=== PATIENT | male | born 1945 | race Caucasian/White ===

== ENCOUNTER → 2017-06-21 | Outpatient (CLI) | payer OTHER, MEDICARE ==
[~2017-06-21] MED LIST: ACET-1256 PO; ASPEC81 PO; ASPI1CHW12 PO; CZR50 PO; DICL1GEL28 TOP; GLC/500 PO; GLIP10TA9 PO; HYDR25TA5 PO; IBUP-1050 PO; KETO10TA PO; LOSA1TAB PO; OXYC-57 PO; PRVC/40 PO; SAXAGLIPTIN; SAXAGLIPTIN PO; SILD100T PO
[2017-06-21 14:37] LABS: BASO % 0.3 %; BASO ABS # 0.02 K/uL (0-0.2); EOS % 2.5 %; EOS ABS # 0.17 K/uL (0-0.5); HEMATOCRIT 41.8 % (42-52); HEMOGLOBIN 14.4 g/dL (14.0-18.0); LYMPH % 22.1 %; MEAN CELL VOLUME 90.3 fL (80-100); MEAN CORPUSCULAR HEMOGLOBIN 31.1 pg (25-34); MEAN CORPUSCULAR HGB CONC 34.4 g/dl (32-36); MEAN PLATELET VOLUME 11.4 fL (7.4-10.4); MONO % 8.7 %; MONO ABS # 0.59 K/uL (0.11-0.59); NEUT % 66.4 %; NEUT ABS # 4.52 K/uL (1.4-6.5); PLATELET COUNT 158 K/uL (130-400); RED CELL DISTRIBUTION WIDTH SD 42.9 fL (36.4-46.3)
[2017-06-21 15:16] LABS: BLOOD UREA NITROGEN 28 mg/dl (7-18); CARBON DIOXIDE 26 mmol/L (21-32); CREATININE 1.11 mg/dl (0.60-1.40); GLUCOSE 110 mg/dl (70-99); POTASSIUM 3.4 mmol/L (3.5-5.1); SODIUM 139 mmol/L (136-145)
== END | disposition home or self-care (01) ==
LOC: C.CPL 12:35
PROVIDERS: ATTEND Orthopaedic Surgery
DX: Z01.818 Encounter for other preprocedural examination (principal); S52.022A Displaced fracture of olecranon process without intraarticular extension of left ulna, initial encounter for closed fracture; X58.XXXA Exposure to other specified factors, initial encounter

== ENCOUNTER 2017-06-24 12:31 | Day surgery (SDC) | payer OTHER, MEDICARE ==
--- NOTE | 2017-06-23 10:06 | HISTORY & PHYSICAL EXAMINATION ---
DATE OF ADMISSION: 06/24/2017 CHIEF COMPLAINT: Left olecranon fracture. HISTORY OF PRESENT ILLNESS: Laureano is a pleasant 72-year-old male who fell off a step ladder about a week ago directly on to his left elbow. He had immediate elbow pain. He went to [facility] [place] [facility] where radiographs demonstrated a transverse left olecranon fracture. He was placed in a posterior splint and presented to my office. After discussions in my office, he has elected to proceed with an ORIF of the left olecranon. PAST MEDICAL HISTORY: Significant for heart disease, a single stent placement 10 years ago, diabetes, hyperlipidemia, and hypertension. PAST SURGICAL HISTORY: Significant for left total knee arthroplasty, cervical fusion by Dr. Lamb 4 years ago, cardiac stent placement in [place] 10 years ago. ALLERGIES: None. MEDICATIONS: Include glipizide 10 mg twice a day, hydrochlorothiazide 25 mg daily, losartan 50 mg daily, metformin 500 mg twice a day, pravastatin 20 mg daily, aspirin 81 mg daily, ibuprofen as needed for pain, and Claritin 10 mg as needed. FAMILY HISTORY: Denies. SOCIAL HISTORY: The patient is , has 1-2 drinks a day. He lives in a house with his and his is able to take care of him. REVIEW OF SYSTEMS: He complains of left elbow pain. PHYSICAL EXAMINATION: GENERAL: He is awake, alert and oriented x3. He is in no apparent distress. He is very pleasant. HEENT: Pupils equal, round, reactive to light. Extraocular motion is intact. Oral mucosa is pink and moist. HEART: Regular rate per radial pulse. LUNGS: Loan symmetrically bilaterally with no audible breath sounds. ABDOMEN: Soft, nontender, nondistended. MUSCULOSKELETAL: On physical examination of his arms, he is wearing a coaptation splint. He has active motion of all his fingers. He does not have too much swelling. Sensation is intact. He has full range of motion of his shoulder. X-rays of the left elbow show a displaced transverse left olecranon fracture. 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 IMPRESSION: A transverse left olecranon fracture. PLAN: We will proceed with open reduction internal fixation of left olecranon. Postoperatively, he will be given some oral pain medications and likely discharged to home.
[2017-06-23 10:18] VITALS: BMI 39.0
[~2017-06-24] VITALS: Ht 177.8 cm; Wt 122.7 kg
[~2017-06-24 12:31] MED LIST changes: +ACETAMINOPHEN 500 MG TAB PO SCH; -ASPEC81 PO; +CEFAZOLIN 3000MG IV PUSH 22.5 ML IV SCH; -DICL1GEL28 TOP; +FAMOTIDINE 20 MG TAB PO SCH; +GABAPENTIN 300 MG CAP PO SCH; -KETO10TA PO; +LACTATED RINGER'S 1000ML 1,000 ML IV SCH; +LACTATED RINGER'S 1000ML IV SCH; -LOSA1TAB PO; -OXYC-57 PO; -SAXAGLIPTIN
[2017-06-24 13:00] VITALS: BP 150/88; PULSE 78; TEMP 36.6; O2SAT 97; Ht 177.8 cm; Wt 122.7 kg
[2017-06-24] MEDS ORDERED: OXYC-57 PO ×2 (13:17→18:32)
--- NOTE | 2017-06-24 14:15 | History & Physical Bridge Note ---
H&P Re-Evaluation Bridge Note: I have examined the patient, reviewed the History & Physical and in the interval since the performance of the History & Physical I have noted the following changes of clinical significance: No changes noted
[2017-06-24] MEDS ORDERED: PROPOFOL IV EMULSION 10 MG/ML 20 ML VIAL IV ONE ×2 (16:31→17:12)
[2017-06-24] MEDS ORDERED: MIDAZOLAM HCL 1 MG/ML 2ML VIAL ONE (16:31)
[2017-06-24] MEDS ORDERED: DEXAMETHASONE SOD INJ 4 MG/ML VIAL ONE (16:31)
[2017-06-24] MEDS ORDERED: LIDOCAINE HCL 2% 2 ML VIAL (20MG/ML) ONE (16:31)
[2017-06-24] MEDS ORDERED: FENTANYL CITRATE INJ 50 MCG/1 ML 2 ML VIAL ONE ×2 (16:31→17:30)
[2017-06-24] MEDS ORDERED: ONDANSETRON INJ 2 MG/ML 2 ML VIAL ONE (16:31)
[2017-06-24] MEDS ORDERED: BUPIVACAINE 0.25% 30 ML VIAL ONE (16:32)
[2017-06-24] MEDS ORDERED: EpINEphrine INJ 1MG/ML AMP 1 MG/ML AMP ONE (16:32)
[2017-06-24] MEDS ORDERED: BACITRACIN 50000 UNIT VIAL ONE (16:32)
[2017-06-24] MEDS ORDERED: ROCURONIUM BROMIDE 10 MG/ML 5 ML VIAL IV ONE (17:23)
[2017-06-24] MEDS ORDERED: NEOSTIGMINE METHYLSULFATE 5 MG/5 ML SYR ONE (17:23)
[2017-06-24] MEDS ORDERED: GLYCOPYRROLATE INJ 0.2 MG/ML VIAL ONE (17:23)
[2017-06-24] MEDS ORDERED: ONDANSETRON INJ 2 MG/ML 2 ML VIAL IV PRN ×2 (17:30→18:45)
[2017-06-24] MEDS ORDERED: ATROPINE SULFATE 0.1 MG/ML 5ML SYR IV PRN (17:30)
[2017-06-24] MEDS ORDERED: EpHEDrine SULFATE INJ 50 MG/ML AMP IV PRN (17:30)
[2017-06-24] MEDS ORDERED: HYDROmorphone INJ 0.5 MG/0.5 ML SYR IV PRN (17:30)
[2017-06-24] MEDS ORDERED: MEPERIDINE HCL 25 MG/ML CARP IV PRN (17:30)
--- NOTE | 2017-06-24 18:21 | DIAGNOSTIC IMAGING REPORT ---
L ELBOW MIN 3 VIEWS ROUTINE CLINICAL HISTORY: LT ORIF OLECRANON COMPARISON STUDY: None FLUOROSCOPY TIME: 1 minute 9 seconds. FINDINGS: Anatomic alignment post open reduction internal fixation IMPRESSION: Anatomic alignment post open reduction internal fixation The above report was generated using voice recognition software. It may contain grammatical, syntax or spelling errors. Electronically signed by: Aaron Horn M.D. 06/24/2017 6:20 PM Dictated Date/Time: 06/24/2017 6:19 PM
[2017-06-24] MEDS ORDERED: KETO10TA PO (18:32)
--- NOTE | 2017-06-24 18:32 | [facility] Post Operative Brief Note ---
Immediate Operative Summary Operative Date Jun 24, 2017. Pre-Operative Diagnosis Transverse left olecranon fracture Post-Operative Diagnosis Transverse left olecranon fracture Procedure(s) Performed Open Reduction Internal Fixation Olecranon Left Elbow Fracture Surgeon Dr. Valdes Charge Account Authorizer Surgeon(s) Dixon Wright Estimated Blood Loss 10ml Findings Consistent with Post-Op Diagnosis Specimens No specimen Anesthesia Type General Complication(s) none Disposition Disposition: Recovery Room / PACU
[2017-06-24] MEDS ORDERED: SODIUM CHLORIDE 0.9% 1000ML 1,000 ML IV SCH (18:34)
--- NOTE | 2017-06-24 18:34 | Discharge Instructions ---
Discharge Instructions Date of Service Jun 24, 2017. Admission Reason for Admission: Olecranon Fracture Left Elbow Discharge Discharge Diagnosis / Problem: SAME ABOVE Discharge Goals Goal(s): Decrease discomfort, Improve function Activity Recommendations Activity Limitations: as noted below Lifting Limitations: until after follow-up appointment . Instructions / Follow-Up Instructions / Follow-Up MEDICATIONS: * Resume previous medications unless instructed otherwise by your surgeon. * Always take pain medication on a full stomach or with food to avoid upset stomach. * Do not drink alcohol or drive while taking narcotics. * Ibuprofen or Tylenol may be taken if narcotic not needed. SPECIAL CARE INSTRUCTIONS: __ None _X_ Keep extremity elevated and iced x 48 hours; apply ice 20-30 minutes 8-10 times/day. May remove at night. _X_ Sling _X_24 hrs/day __ Remove at night __ Shoulder Immobilizer __ 24 hrs/day __ Remove at night _X_ Dressing _X_ Maintain until seen in office, may shower with plastic over site __ Remove dressings in 24-48 hours and then may shower __ Cover incisions with band-aids after showering __ Do not remove steri-strips Call physician if chills or temperature rises above 102 degrees or pain unrelieved by prescribed pain medications at . . Current Hospital Diet Patient's current hospital diet: Discharge Diet Recommended Diet: Regular Diet Procedures Procedures Performed: Open Reduction Internal Fixation Olecranon Left Elbow Fracture Pending Studies Studies pending at discharge: no Work Instructions Return To Work: after follow-up Medical Emergencies . Who to Call and When: Medical Emergencies: If at any time you feel your situation is an emergency, please call 911 immediately. . Non-Emergent Contact Non-Emergency issues call your: Primary Care Provider Call Non-Emergent contact if: you have a fever, temperature is above 101.5 . "Provider Documentation" section prepared by Dixon Kuhn. .
[2017-06-24] MEDS ORDERED: OXYCODONE/ACETAMINOPHEN 5-325 TAB PO PRN ×2 (18:45)
[2017-06-24] MEDS: FENTANYL CITRATE INJ 50 MCG/1 ML 2 ML VIAL IV PRN ×2 (18:50→18:55)
[2017-06-24] MEDS: LABETALOL HCL IV 5 MG/ML 20ML IV PRN ×2 (18:54→19:00)
[2017-06-24 19:20] VITALS: BP 150/66; PULSE 53; TEMP 36.2; O2SAT 96
[2017-06-24 19:49] VITALS: BP 153/71; PULSE 68; O2SAT 94
--- NOTE | 2017-06-24 20:47 | Anesthesiology Progress Note ---
Anesthesia Post Op Note Date & Time Jun 24, 2017 at 20:47 Vital Signs Pain Intensity: 4 Vital Signs Past 12 Hours Date Time Temp Pulse Resp B/P (MAP) Pulse Ox O2 Delivery O2 Flow Rate FiO2 06/24/17 19:49 68 18 153/71 94 Room Air 06/24/17 19:20 36.2 53 18 150/66 96 Room Air 06/24/17 19:15 36.5 54 16 158/78 94 Room Air 06/24/17 19:05 36.5 55 16 167/75 98 Room Air 06/24/17 18:55 62 16 174/76 99 Oxymask 10 06/24/17 18:45 63 16 181/80 97 Oxymask 10 06/24/17 18:35 36.5 71 16 200/90 97 Oxymask 10 06/24/17 13:00 36.6 78 18 150/88 (108) 97 Room Air Notes Mental Status: alert / awake / arousable, participated in evaluation Pt Amnestic to Procedure: Yes Nausea / Vomiting: adequately controlled Pain: adequately controlled Airway Patency, RR, SpO2: stable & adequate BP & HR: stable & adequate Hydration State: stable & adequate Anesthetic Complications: no major complications apparent
--- NOTE | 2017-06-24 23:50 | OPERATIVE REPORT ---
DATE OF OPERATION: 06/24/2017 PREOPERATIVE DIAGNOSIS: Transverse left olecranon fracture. POSTOPERATIVE DIAGNOSIS: Transverse left olecranon fracture. PROCEDURE: Open reduction internal fixation of left olecranon fracture. SURGEON: Erich Valdes DO. STOVE POLISHER: Giovanni Kuhn PA-C, whose assistance was necessary for retraction and closure. ANESTHESIA: General. COMPLICATIONS: None. CONDITION: Stable to PA-C. IMPLANTS USED: I used a Synthes precontoured olecranon plate. INDICATIONS: Ricardo is a pleasant 72-year-old male who fell and fractured his left olecranon several days ago. He was placed in a splint and came to my office. Radiographs demonstrated a transverse olecranon fracture. He elected to undergo open reduction internal fixation. OPERATION AND FINDINGS: On 06/24/2017, he arrived at [facility] for the above procedure. He was seen in the preoperative holding and the operative extremity was identified and signed. He was given a preoperative antibiotic and taken back to the operating room, laid on the table in supine position and put under general anesthesia. He was then put in the lateral decubitus position. The left elbow was then prepped and draped in sterile fashion. Time-out was done and the patient and operative extremity was properly identified. A longitudinal incision was made directly over the olecranon. Dissection was taken down directly to the fracture. The joint was irrigated thoroughly. The edges of the fracture were freshened up with a sharp knife. A tenaculum clamp was used to reduce the fracture. I was able to get anatomic reduction. A Synthes proximal olecranon plate was then applied. A single compression screw was placed in a combination hole more distally. A compression screw was then placed perpendicular to the fracture site. This compressed the plate to the posterior olecranon and the original cortical screw was tightened. Fluoroscopy was used and I was happy with the alignment and the reduction. Multiple locking screws were placed both proximally and distally. All screw lengths were checked under fluoroscopy. After I was happy with the fixation, the elbow was brought through a full range of motion and felt to be stable. Final fluoroscopic images showed anatomic reduction and acceptable alignment of the hardware. None of the screws appeared to be in the joint. The wound was then irrigated with pulse lavage. The split in the triceps was repaired with Vicryl suture. Skin was closed with 3-0 Vicryl and birgit. He was then placed in a soft dressing and a coaptation splint. He was then extubated, transferred to a litter and taken to the postanesthesia care unit in stable condition. He tolerated the procedure well. I attest to the content of the Intraoperative Record and any orders documented therein. Any exception s are noted below.
== END 2017-06-24 20:11 | disposition home or self-care (01) ==
LOC: C.ACU 12:31
PROVIDERS: ATTEND Orthopaedic Surgery
DX: S52.022A Displaced fracture of olecranon process without intraarticular extension of left ulna, initial encounter for closed fracture (principal); W11.XXXA Fall on and from ladder, initial encounter; I51.9 Heart disease, unspecified; G47.33 Obstructive sleep apnea (adult) (pediatric); E11.40 Type 2 diabetes mellitus with diabetic neuropathy, unspecified; I25.10 Atherosclerotic heart disease of native coronary artery without angina pectoris; E66.9 Obesity, unspecified; E78.5 Hyperlipidemia, unspecified; I11.9 Hypertensive heart disease without heart failure; Z95.5 Presence of coronary angioplasty implant and graft; Z96.652 Presence of left artificial knee joint; Z98.1 Arthrodesis status; Z79.84 Long term (current) use of oral hypoglycemic drugs; Z79.899 Other long term (current) drug therapy; Z79.82 Long term (current) use of aspirin; Z87.891 Personal history of nicotine dependence

== ENCOUNTER 2024-02-07 08:51 | Inpatient (IN) ==
--- NOTE | 2024-01-09 15:54 | PAT Medication Instructions ---
Medication Instructions Date of Service January 09, 2024 Home Medications aspirin 81 mg tablet 81 mg PO QAM cholecalciferol (vitamin D3) 125 mcg (5,000 unit) tablet (Vitamin D3) 125 mcg PO BID diphenhydramine 25 mg-acetaminophen 500 mg tablet (Tylenol PM Extra Strength) 2 tab PO HS duloxetine 20 mg capsule,delayed release 20 mg PO QAM fluticasone propionate 50 mcg/actuation nasal spray,suspension 2 spray intranasal DAILY losartan 50 mg-hydrochlorothiazide 12.5 mg tablet 1 tab PO QAM metformin 1,000 mg tablet 1,000 mg PO BID sitagliptin 100 mg tablet 100 mg PO QAM vitamin B12 1,000 mcg-folic acid 400 mcg sublingual tablet 1 tab sublingual DAILY Continue as directed fluticasone propionate 50 mcg/actuation nasal spray,suspension 2 spray intranasal DAILY ASK your prescriber and surgeon aspirin 81 mg tablet 81 mg PO QAM DO NOT take the morning of surgery cholecalciferol (vitamin D3) 125 mcg (5,000 unit) tablet (Vitamin D3) 125 mcg PO BID losartan 50 mg-hydrochlorothiazide 12.5 mg tablet 1 tab PO QAM metformin 1,000 mg tablet 1,000 mg PO BID sitagliptin 100 mg tablet 100 mg PO QAM vitamin B12 1,000 mcg-folic acid 400 mcg sublingual tablet 1 tab sublingual DAILY Take morning of surgery With a small sip of water, OTHERWISE NOTHING TO EAT OR DRINK AFTER MIDNIGHT: duloxetine 20 mg capsule,delayed release 20 mg PO QAM Take evening before surgery cholecalciferol (vitamin D3) 125 mcg (5,000 unit) tablet (Vitamin D3) 125 mcg PO BID diphenhydramine 25 mg-acetaminophen 500 mg tablet (Tylenol PM Extra Strength) 2 tab PO HS metformin 1,000 mg tablet 1,000 mg PO BID Other Notes If you have any questions please call us at [phone] or [phone] or [phone] or [phone]
--- NOTE | 2024-01-20 13:10 | Anesthesiology Consultation ---
Date of Service January 20, 2024 Assessment & Plan (1) Encounter for pre-operative examination: - Infectious disease screening: Per assessment on 01/20/24- No known recent infectious disease contacts or current infectious disease symptoms. - Preop EKG: Preop EKG done 01/20/24 notes inferior lead TWI. Note written to PCP- Awaiting EKG response + surgeon-ordered PCP preop evaluation (Renetta MENDES, appt done 01/18). Chart Review Chart Review: Patient seen in Pre Admission Testing Teaching & Discussion Pre-Anesthesia Teaching/Discussion Notes: Instructed NPO after midnight before surgery,except medications with 15 cc of water. Medication instructions provided according to the PAT guidelines. History Surgery Operation Date: 02/07/24 11:05 Proposed Procedures p L2-S1 Decompression and Fusion Spinal Cord Monitoring - Mike Galloway, Height/Weight Height: 5 ft 10 in Weight: 114.2 kg Allergies Allergy/AdvReac Type Severity Reaction Status Date / Time atenolol Allergy Unknown Severe Verified 01/20/24 09:25 joint pain, muscle cramps atorvastatin Allergy Unknown Severe Verified 01/20/24 09:25 joint pain, muscle cramps ezetimibe Allergy Unknown Severe Verified 01/20/24 09:25 joint pain, muscle cramps felodipine Allergy Unknown Severe Verified 01/20/24 09:25 joint pain, muscle cramps lisinopril Allergy Unknown Severe Verified 01/20/24 09:25 joint pain, muscle cramps niacin Allergy Unknown Severe Verified 01/20/24 09:25 joint pain, muscle cramps simvastatin Allergy Unknown Severe Verified 01/20/24 09:25 joint pain, muscle cramps zolpidem AdvReac Unknown Hallucinati Verified 01/20/24 09:25 ons Medications Home Medications Medication Instructions Recorded Confirmed Last Taken aspirin 81 mg tablet 81 mg PO QAM 01/06/24 01/06/24 Unknown cholecalciferol (vitamin D3) 125 125 mcg PO BID 01/06/24 01/06/24 Unknown mcg (5,000 unit) tablet (Vitamin D3) diphenhydramine 25 2 tab PO HS 01/06/24 01/06/24 Unknown mg-acetaminophen 500 mg tablet (Tylenol PM Extra Strength) duloxetine 20 mg capsule,delayed 20 mg PO QAM 01/06/24 01/06/24 Unknown release fluticasone propionate 50 2 spray intranasal DAILY allergies 01/06/24 01/06/24 Unknown mcg/actuation nasal spray,suspension losartan 50 mg-hydrochlorothiazide 1 tab PO QAM 01/06/24 01/06/24 Unknown 12.5 mg tablet metformin 1,000 mg tablet 1,000 mg PO BID 01/06/24 01/06/24 Unknown sitagliptin 100 mg tablet 100 mg PO QAM 01/06/24 01/06/24 Unknown vitamin B12 1,000 mcg-folic acid 1 tab sublingual DAILY 01/06/24 01/06/24 Unknown 400 mcg sublingual tablet Past Medical History Medical History (Updated 01/20/24 @ 15:02 by Amy Cortes) CAD (coronary artery disease) Stent x1 (2005) Monitored by PCP Cervical spondylosis with myelopathy Diabetes mellitus History of basal cell carcinoma HLD (hyperlipidemia) Hx of colonic polyp Hx of renal calculi Passed on own Hypertension Seasonal allergies Sleep apnea CPAP (compliant) Exercise / Class Metabolic Activity III < 4 Walking/Shop/Light housework Past Surgical History Surgical History (Updated 01/20/24 @ 15:02 by Amy Cortes) History of basal cell carcinoma (BCC) excision Multiple History of esophagogastroduodenoscopy (EGD) History of left knee replacement History of open reduction and internal fixation (ORIF) procedure Feft elbow (fx from fall) Hx of cardiac catheterization 2005 > stent x1 Hx of colonoscopy with polypectomy Hx of fusion of cervical spine 15+ years ago Hx of heart artery stent (2003) Stent x1 Hx of hemorrhoidectomy (1973) Hx of varicose vein stripping (06/2023) 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 Physical Exam Vital Signs BP 125/69 P 73 TEMP 98.2 SP02 95%RA RESP 16 Physical Full cervical extension range of motion. Full TMJ range of motion. TMD 3 finger breaths Mallampati Score II Dentition: upper partial Lungs: clear throughout to auscultation Cardiac: regular rate and rhythm, no murmurs noted Spine: normal Carotid arteries: negative bruit Extremities: no LE edema Lab Results Anesthesia Preop Results Results Anesthesia Widget: WBC 6.85 K/ul (4.8-10.8) 01/20/24 Hgb 13.8 g/dl (14.0-18.0) L 01/20/24 Hct 41.3 % (42.0-52.0) L 01/20/24 Plt 151 K/uL (130-400) 01/20/24 Na 141 mmol/L (136-145) 01/20/24 K 4.0 mmol/L (3.5-5.1) 01/20/24 Cl 105 mmol/L (98-107) 01/20/24 CO2 27 mmol/L (21-32) 01/20/24 BUN 17 mg/dl (6-23) 01/20/24 Creat 1.07 mg/dl (0.6-1.4) 01/20/24 Glucose Level 133 mg/dl (70-99(Fasting)) H 01/20/24 PT 10.8 Seconds (9.0-12.0) 01/20/24 PTT 25 Seconds (21-31) 01/20/24 INR 1.0 (0.9-1.1) 01/20/24 Urine Color Yellow 01/20/24 Urine Appearance Clear (Clear) 01/20/24 Urine pH 5.5 (4.5-7.5) 01/20/24 Urine Specific [place] 1.022 (1.000-1.030) 01/20/24 Urine Protein Negative (Negative) 01/20/24 Urine Glucose (UA) Negative (Negative) 01/20/24 Urine Ketones Trace (Negative) H 01/20/24 Urine Blood Negative (Negative) 01/20/24 Urine Nitrite Negative (Negative) 01/20/24 Urine Bilirubin Negative (Negative) 01/20/24 Urine Urobilinogen Negative (Negative) 01/20/24 Urine Leukocyte Esterase Negative (Negative) 01/20/24 Blood Type B Positive 01/20/24 Antibody Screen NEGATIVE 01/20/24 Testing Electrocardiogram Date: 01/20/24 NSR at 71bpm. NS TWA. Inferior lead TWI (more evident than comparison EKG 2018 per assembler dry cell and battery comparison). Chest X-Ray Date: 01/20/24 FINDINGS: Anterior cervical spine fusion is incidentally noted. Lung volumes are normal. Lungs are clear. There is no pneumothorax or pleural effusion. Mild cardiomegaly is unchanged. Mediastinal contours are normal. There is no evidence for pulmonary edema. IMPRESSION: No acute cardiopulmonary findings.
[~2024-02-07 08:51] MED LIST changes: -ACET-1256 PO; -ACETAMINOPHEN 500 MG TAB PO SCH; -ASPI1CHW12 PO; -CEFAZOLIN 3000MG IV PUSH 22.5 ML IV SCH; -CZR50 PO; -FAMOTIDINE 20 MG TAB PO SCH; -GABAPENTIN 300 MG CAP PO SCH; -GLC/500 PO; -GLIP10TA9 PO; -HYDR25TA5 PO; -IBUP-1050 PO; -LACTATED RINGER'S 1000ML 1,000 ML IV SCH; -LACTATED RINGER'S 1000ML IV SCH; +LIDOCAINE 2% 20 MG/ML 5 ML SYR IV ONE; +LR 15ML/HR IV SCH; +LR 60ML/HR IV SCH; +PROPOFOL IV EMULSION 10 MG/ML 20 ML VIAL IV ONE; -PRVC/40 PO; +ROCURONIUM BROMIDE 10 MG/ML 5 ML VIAL IV ONE; -SAXAGLIPTIN PO; -SILD100T PO; +fentaNYL citrate PF 100 MCG/2 ML VIAL ONE
[2024-02-07] MEDS ORDERED: ATROPINE SULFATE 0.1 MG/ML 10ML SYR IV PRN (09:33)
[2024-02-07] MEDS ORDERED: DROPERIDOL 5 MG/2 ML VIAL IV PRN (09:33)
[2024-02-07] MEDS ORDERED: ePHEDrine sulfate 50 MG/ML AMP IV PRN (09:33)
[2024-02-07] MEDS: SODIUM CHLORIDE 0.9% 1,000 ML IV SCH ×2 (09:38→15:45)
[2024-02-07] MEDS: ACETAMINOPHEN 500 MG TAB PO SCH (09:38)
[2024-02-07] MEDS: CeleBREX 200 MG CAP PO SCH (09:38)
[2024-02-07] MEDS: GABAPENTIN 300 MG CAP PO SCH (09:38)
--- NOTE | 2024-02-07 09:54 | History & Physical Bridge Note ---
Date of Service February 07, 2024 History & Physical Bridge Note I have examined the patient, reviewed the History & Physical and in the interval since the performance of the History & Physical I have noted the following changes of clinical significance: no changes noted
--- NOTE | 2024-02-07 09:55 | History & Physical Report ---
Date of Service February 07, 2024 Assessment & Plan (1) Neurogenic claudication due to lumbar spinal stenosis: Plan: L2-S1 decompression and fusion History of Present Illness Chief Complaint: Back and bilateral pain Primary Care Provider: Lemuel Gordillo This is a 78-year-old male who presents with chronic persistent back and bilateral knee pain after failing course of nonoperative care is here for surgical invention. Allergies Allergy/AdvReac Type Severity Reaction Status Date / Time atenolol Allergy Unknown Severe Verified 02/07/24 09:25 joint pain, muscle cramps atorvastatin Allergy Unknown Severe Verified 02/07/24 09:25 joint pain, muscle cramps ezetimibe Allergy Unknown Severe Verified 02/07/24 09:25 joint pain, muscle cramps felodipine Allergy Unknown Severe Verified 02/07/24 09:25 joint pain, muscle cramps lisinopril Allergy Unknown Severe Verified 02/07/24 09:25 joint pain, muscle cramps niacin Allergy Unknown Severe Verified 02/07/24 09:25 joint pain, muscle cramps simvastatin Allergy Unknown Severe Verified 02/07/24 09:25 joint pain, muscle cramps zolpidem AdvReac Unknown Hallucinati Verified 02/07/24 09:25 ons Home Medications Medication Instructions Recorded Confirmed Type aspirin 81 mg tablet 81 mg PO QAM 01/06/24 02/07/24 History cholecalciferol (vitamin D3) 125 125 mcg PO BID 01/06/24 02/07/24 History mcg (5,000 unit) tablet (Vitamin D3) diphenhydramine 25 2 tab PO HS 01/06/24 02/07/24 History mg-acetaminophen 500 mg tablet (Tylenol PM Extra Strength) duloxetine 20 mg capsule,delayed 20 mg PO QAM 01/06/24 02/07/24 History release fluticasone propionate 50 2 spray intranasal DAILY allergies 01/06/24 02/07/24 History mcg/actuation nasal spray,suspension losartan 50 mg-hydrochlorothiazide 1 tab PO QAM 01/06/24 02/07/24 History 12.5 mg tablet metformin 1,000 mg tablet 1,000 mg PO BID 01/06/24 02/07/24 History sitagliptin 100 mg tablet 100 mg PO QAM 01/06/24 02/07/24 History vitamin B12 1,000 mcg-folic acid 1 tab sublingual DAILY 01/06/24 02/07/24 History 400 mcg sublingual tablet Past Med/Surg History Problem List (Updated 02/07/24 @ 09:55 by Mike Galloway DO) Neurogenic claudication due to lumbar spinal stenosis Encounter for pre-operative examination Medical History (Updated 02/07/24 @ 09:55 by Mike Galloway DO) CAD (coronary artery disease) Stent x1 (2005) Monitored by PCP Seasonal allergies Hx of renal calculi Passed on own Hx of colonic polyp Sleep apnea CPAP (compliant) HLD (hyperlipidemia) Diabetes mellitus History of basal cell carcinoma Hypertension Cervical spondylosis with myelopathy Surgical History History of esophagogastroduodenoscopy (EGD) Hx of colonoscopy with polypectomy Hx of hemorrhoidectomy (1973) History of basal cell carcinoma (BCC) excision Multiple History of open reduction and internal fixation (ORIF) procedure Feft elbow (fx from fall) Hx of heart artery stent (2003) Stent x1 Hx of cardiac catheterization 2005 > stent x1 Hx of fusion of cervical spine 15+ years ago History of left knee replacement Hx of varicose vein stripping (06/2023) 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) Social History Smoking Status: Never smoker Tobacco Type: Cigarettes Smoking End Date: Quit 40 years ago; Second Hand Exposure: No; Do You Dip or Chew Tobacco: No; Tobacco Cessation Education Requested by Patient: No Hx Alcohol Use: Yes Alcohol type: beer Hx Substance Use: No Preferred Language: Arabic Communication Ability: Effective Ship Mate Required: No Beliefs That Will Affect Care: None Current Living Situation: Spouse Other Information That Helps Us Care for You: No Feels Safe at Home: Yes Safety Concerns: Feels Safe At This Time Assistive Devices: CPAP, Denture - Upper and Hearing Aid - Bilateral Assistive Devices Comment: partial upper Physical Exam Physical Exam: Patient is alert and oriented Heart regular rhythm Lungs clear Results & Data Results & Data Vital Signs (Past 12 Hours) Vital Signs Temp Pulse Resp BP Pulse Ox O2 Del Method 02/07/24 09:23 36.9 C 65 20 190/88 H 98 Room Air
[2024-02-07] MEDS: ceFAZolin 330 MG/ML 1 GM VIAL ONE (10:27)
[2024-02-07] MEDS: ceFAZolin 2000MG 2,000 MG/15 ML SYR IV SCH ×2 (10:27→21:38)
[2024-02-07] MEDS ORDERED: ONDANSETRON INJ 2 MG/ML 2 ML VIAL ONE (10:46)
[2024-02-07] MEDS ORDERED: DEXAMETHASONE SOD INJ 4 MG/ML VIAL ONE (10:46)
[2024-02-07] MEDS ORDERED: SUGAMMADEX SODIUM 200 MG/2 ML VIAL IV ONE (10:47)
[2024-02-07] MEDS ORDERED: ROCURONIUM BROMIDE 10 MG/ML 5 ML VIAL IV ONE (11:13)
[2024-02-07] MEDS: SURGICEL ABSORB HEMOSTAT 2IN X 14IN TOP ONE (11:34)
[2024-02-07] MEDS: FLOSEAL HEMOSTATIC MATRIX 10ML TOP ONE (13:47)
[2024-02-07] MEDS: BUPIVACAINE/EPINEPHRINE 0.25% 1:200,000 30 ML VIAL ONE (13:47)
--- NOTE | 2024-02-07 13:55 | Operative Report ---
Post Operative Report Pre & Post Diagnosis Operation Date: 02/07/24 10:45 Pre-Op Diagnosis: Lumbar spinal stenosis with neurogenic claudication Lumbar radiculopathy Advanced lumbar degenerative disc disease Post-Op Diagnosis: Same I identified the patient and participated in the time-out.: Yes Procedure Operation Date: 02/07/24 10:45 Actual Procedures #1 lumbar decompression bilateral medial facetectomies and foraminotomies L2-L3, L3-L4, L4-L5 and L5-S1. #2 posterior spinal fusion L2-S1. #3 placement posterior segmental instrumentation L2-S1. #4 interbody fusion L3-L4, L4-5 and L5-S1. #5 placement Spira 14 x 26 mm at L3-L4, 14 x 26 mm x 2 at L4-L5 and 13 x 26 mm x 2 at L5-S1. #6 placement locally harvested morselized autograft and posterior gutters. #7 placement infuse collagen sponge combined with Koros in the posterior lateral gutters and os design interbody space. #8 application of versa wrap over the exposed dura. Surgeon Mike Galloway, DO [employer] Lucina Gilman Estimated Blood Loss 1,050 Findings See Below The patient is 5 foot 10 weighing over 115 kg with a BMI in excess of 36. This combined with an EBL of greater than 1000 cc created significant technical difficulty. This included positioning exposure and the procedure itself. This at least 50% increased operative time. I am recommending a modifier 22. Specimens None Indications This is a 78-year-old male presents above his diagnosis after failing course of nonoperative care is here for surgical invention. Description of Procedure Patient was met with identified informed consent obtained. Patient was then taken to the operative suite underwent intubation placed in a prone position on the Charan table on top of the Joel frame. All bony promises well-padded eyes inspected to ensure no external precipice spinal. This point the lumbar spine was prepped and draped in normal sterile fashion. Sharp dissection with the assistance of Bovie cautery performed down to and exposing the lamina transverse processes of L2 L3-L4-L5 and the sacral ala bilaterally. From a caudal cephalad fashion complete laminectomy of L5 was performed including bilateral medial facetectomies and foraminotomies addressing severe spinal stenosis. This was followed by complete laminectomy of L4 again completing bilateral medial facetectomies and foraminotomies followed by complete laminectomy of L3 with bilateral medial facetectomies and foraminotomies and lastly complete laminectomy of L2 with bilateral medial facetectomies and foraminotomies. Severe spinal stenosis and foraminal disease noted at all levels. Pedicle screws then placed in L2 L3-L4-L5 and S1 levels bilaterally with assistance of fluoroscopy and appropriate size lindsay contoured and placed. By way of transforaminal approach on the right a discectomy of L5-S1 was performed, endplates curetted to subcortical bleeding bone and a 13 x 26 mm spiral cage filled with os design bone graft tapped in position. Then proceeded to the left transforaminal region L5-S1. Again discectomy performed, endplates guided to subcortical bleeding bone and a 13 x 26 mm Spira cage filled with os design I then proceeded L4-[address] to transfer approach on the right discectomy L4-5 was performed endplates guided to subcortical and bone and a 14 x 26 mm spiral cage filled with os design bone graft tapped in position. Then proceeded to the left transforaminal region at L4-5. Discectomy again performed endplates curetted to subcortical and bone and a second 14 x 26 mm Spira cage filled with os designed tapped into position. Lastly approached L3-L4 and by way of transforaminal approach on the right complete discectomy performed endplates guided to subcortical bleeding bone and a 14 x 26 mm Spira cage filled with os design bone graft tapped in position. The rods were then locked in final position bilaterally. The transverse processes of L2 L3-L4-L5 and the S1 levels were to subcortical bleeding bone. Infuse collagen sponge combined with Koros and locally harvested morselized autograft placed in posterior gutters. Versa wrap placed over the exposed dura. 15 round EMILIANO drain inserted. The incision was then closed with 1 Vicryl the fascia 2-0 Vicryl subcutaneously and 4 Monocryl for fascial closure. Steri-Strips sterile dressing placed. Patient waken taken to PACU stable condition. Please note spinal cord monitoring was utilized at the procedure no changes noted. Lucina Gilman was present at the entire surgery and while the patient positioning complex portion of the surgery and final skin closure. Im ordering 20 grams of Triple [place] Collagen Powder ([facility] A6010) to treat an incision wound that was caused by a spine procedure. The incision is approximately 2 cm(W) x 4 cm(L) into the joint (D) in size and is a full thickness wound. Triple [place] collagen comes in 1 gram packets so 20 packets were ordered. Given the size of the wound, with light to moderate exudate I chose to order a 20 day supply. The patient will be provided instructions for proper application of the collagen wound kit. The patient will be asked to apply the collagen powder daily and then cover it with sterile dressings dispensed. Collagen was selected as I expect the collagen to attract monocytes and fibroblasts, act as a sacrificial substrate for MMPs, and ultimately proved a matrix for tissue and vessel growth. The collagen will act as a primary dressing in this scenario. It is medically necessary for proper healing of these wounds to improve bioavailability and contact with each wound surface, this is also to help prevent infection of wounds and promote healing ultimately leading to a better healing outcome and limit the risk of infection. I attest to the content of the Intraoperative Record and any orders documented therein. Any exceptions are noted below.
--- NOTE | 2024-02-07 14:06 | Fluoroscopy Report ---
FL lumbar spine 2-3V CLINICAL HISTORY: L2-S1 DECOMPRESSION AND FUSION COMPARISON STUDY: None. FLUOROSCOPY TIME: 36 seconds. Ka,r: 33.90 mGy FLUOROSCOPIC IMAGES: 4 FINDINGS: Fluoroscopy was provided during L2-S1 decompression and bilateral pedicle screw fusion. The re are interbody spacers at the L3-L4, L4-L5 and L5-S1 levels. No unexpected radiopaque foreign mariano s are present. IMPRESSION: Fluoroscopy provided during L2-S1 decompression and fusion, as described above. ACT 112: Negative or not required by law. Electronically signed by: Melecio Liz M.D. 02/07/2024 2:05 PM
[2024-02-07] MEDS: HYDROmorphone INJ 2 MG/ML SYR/VIAL IV PRN (14:36)
--- NOTE | 2024-02-07 14:40 | Anesthesiology Progress Note ---
Date of Service February 07, 2024 Anesthesia Post Procedure Vital Signs Vital Signs: Temp Pulse Pulse Resp BP Pulse Ox O2 Del Method 02/07/24 14:30 68 21 141/75 H 95 Room Air 02/07/24 14:20 68 12 135/76 96 Room Air 02/07/24 14:10 36.7 C 72 16 149/69 H 100 Room Air 02/07/24 09:23 36.9 C 65 20 190/88 H 98 Room Air Pain Intensity Back: Pain Intensity: 5 Transfer of Care Handoff Completed per policy Notes Mental Status: alert / awake / arousable and participated in evaluation Nausea / Vomiting: adequately controlled Pain: adequately controlled Airway Patency, RR, SpO2: stable & adequate BP & HR: stable & adequate Hydration State: stable & adequate Anesthetic Complications: no major complications apparent and Pt Satisfied with anesthetic care
[2024-02-07] MEDS ORDERED: PHARMACY GLYCEMIC MGMT CONSULT PRN (15:42)
[2024-02-07] MEDS ORDERED: ACETAMINOPHEN 500 MG TAB PO PRN (15:42)
[2024-02-07] MEDS ORDERED: FAMOTIDINE 20 MG TAB PO PRN (15:42)
[2024-02-07] MEDS ORDERED: PROMETHAZINE 12.5 MG/50.5 ML BAG IV PRN (15:42)
[2024-02-07] MEDS ORDERED: HYDROmorphone INJ 1 MG/ML SYRINGE IV PRN (15:42)
[2024-02-07] MEDS ORDERED: ACETAMINOPHEN 1,000 MG/100 ML VIAL IV PRN (15:42)
[2024-02-07] MEDS ORDERED: MAGNESIUM HYDROXIDE SUSP 30 ML UDC PO PRN (15:42)
[2024-02-07] MEDS ORDERED: SOD PHOSPHATE/SOD BIPHOSPHATE ENEMA 132 ML BTL PR PRN (15:42)
[2024-02-07] MEDS ORDERED: LORazepam 2 MG/1 ML VIAL IV PRN (15:42)
[2024-02-07] MEDS ORDERED: hydrOXYzine HCl 25 MG TAB PO PRN (15:42)
[2024-02-07] MEDS ORDERED: traMADol HCL 50 MG TABLET PO PRN (15:42)
[2024-02-07] MEDS ORDERED: DO NOT ADMINISTER FLU VACCINE PRN (15:42)
[2024-02-07] MEDS ORDERED: HYDROmorphone INJ 0.5 MG/0.5 ML SYR IV PRN (15:42)
[2024-02-07] MEDS ORDERED: ONDANSETRON 4 MG OD TAB PO PRN (15:42)
[2024-02-07] MEDS ORDERED: diphenhydrAMINE Capsule 25 MG CAP PO PRN (15:42)
[2024-02-07] MEDS ORDERED: ALUMINUM/MAGNESIUM SUSP 30 ML UDC PO PRN (15:42)
[2024-02-07] MEDS ORDERED: METOCLOPRAMIDE HCL INJ 5 MG/ML 2 ML VIAL IV PRN (15:42)
[2024-02-07] MEDS ORDERED: LORazepam 0.5 MG TAB PO PRN (15:42)
[2024-02-07] MEDS ORDERED: NALOXONE HCL 0.4 MG/1 ML VIAL/CARP IV PRN (15:42)
[2024-02-07] MEDS ORDERED: DO NOT ADMINISTER PNEUMOCOCCAL VACCINE PRN (15:42)
[2024-02-07] MEDS ORDERED: bisacodyL 10 MG SUPP PR PRN (15:42)
[2024-02-07] MEDS ORDERED: ONDANSETRON INJ 2 MG/ML 2 ML VIAL IV PRN (15:42)
[2024-02-07] MEDS ORDERED: CARBOHYDRATES FOR HYPOGLYCEMIA PO PRN (16:15)
[2024-02-07] MEDS ORDERED: GLUCOSE 40% GEL 15 GM TUBE PO PRN (16:15)
[2024-02-07] MEDS ORDERED: GLUCAGON FOR INJ 1 MG VIAL SQ PRN (16:15)
[2024-02-07] MEDS ORDERED: DEXTROSE 50% 50 ML SYRINGE IV PRN (16:15)
[2024-02-07] MEDS ORDERED: GLUCOSE 10 TAB/TUBE PO PRN (16:15)
--- NOTE | 2024-02-07 17:02 | Consultation ---
<Statement entered by Toney Magaña, - 02/07/24 20:32> I have seen and examined the patient and have discussed the case with the provider above. I have reviewed the advanced practitioner's documentation, and I agree with, and take responsibility for that plan of care. Patient seen and evaluated later in the evening. Patient sitting up in bed. Denies lightheadedness or dizziness. No chest pain or shortness of breath. Vital signs stable. EMILIANO drain in lumbar incision CV: Regular Lungs: Clear Noted estimated blood loss. Patient at this time appears to be asymptomatic. Reported to patient that if he starts to get lightheaded dizzy or have shortness of breath to report this to the nurse. Would recommend obtaining H&H at that time. Labs in a.m. Discussed plan of care as outlined below with SUZY Date of Consultation February 07, 2024 Assessment & Plan (1) S/P spinal surgery: (2) Neurogenic claudication due to lumbar spinal stenosis: (3) CAD (coronary artery disease): (4) Diabetes mellitus: (5) Sleep apnea: (6) Hypertension: (7) HLD (hyperlipidemia): Plan This is a 78yo F with a PMH of Type 2 diabetes, hypertension, NATALIA, CAD status post stent and other medical problems listed below who is POD#0 s/p lumbar decompression bilateral medial facetectomies and foraminotomies L2-L3, L3-L4, L4-L5 and L5-S1 and posterior spinal fusion L2-S1 by Dr. Galloway. S/p spinal surgery POD#0 s/p lumbar decompression bilateral medial facetectomies and foraminotomies L2-L3, L3-L4, L4-L5 and L5-S1 and posterior spinal fusion L2-S1 by Dr. Galloway. Per ortho for pain control, wound care, anticoagulation and activities Monitor H&H (pre-op hgb 13.8), continue incentive spirometry, PT/OT when appropriate EBL 1,050 ml. Appears hemodynamically stable during time of evaluation, asymptomatic. Blood consent on chart. Consider repeat H/H if becomes symptomatic. Otherwise repeat CBC ordered for AM DM II A1c unknown but average BSG 140s per patient Hold home agents SSI while in-patient Glycemic consult placed per primary service BSG AC HS CAD S/p stent in 2005 Continue aspirin, statin intolerant HTN BP 115/70. Plan to home AM losartan-hctz given post-op state, blood loss as above NATALIA CPAP HS, brought form home DVT Ppx: SCDs Code status: FULL PCP: Reinaldo Srivastava Dispo: Admitted on med/surg, discharge per primary service Patient seen in collaboration with Dr. Magaña. Please see addendum. I spent a total of 60 minutes coordinating, documenting, and providing care for this patient excluding time spent in the performance of separately billed services. Thank you for this consultation. We will follow the patient with you during their hospital stay. You can reach a member of the [facility] Hospitalist Team 27/09 via [employer]. History of Present Illness Reason for Consultation: post op med mgmt Attending Physician: Mike Galloway, History of Present Illness This is a 78yo F with a PMH of Type 2 diabetes, hypertension, NATALIA, CAD status post stent and other medical problems listed below who is POD#0 s/p lumbar decompression bilateral medial facetectomies and foraminotomies L2-L3, L3-L4, L4-L5 and L5-S1 and posterior spinal fusion L2-S1 by Dr. Galloway. Patient feeling well postoperatively. Denies any surgical site pain. No pain or paresthesias in bilateral lower extremities. Tolerating clear liquids without issue. No lightheadedness, visual changes, palpitations. No chest pain, shortness of breath, nausea, vomiting, abdominal pain, dysuria, diarrhea or constipation. Patient receives primary care through [facility] in [place], [place]. Allergies Allergy/AdvReac Type Severity Reaction Status Date / Time atenolol Allergy Unknown Severe Verified 02/07/24 09:25 joint pain, muscle cramps atorvastatin Allergy Unknown Severe Verified 02/07/24 09:25 joint pain, muscle cramps ezetimibe Allergy Unknown Severe Verified 02/07/24 09:25 joint pain, muscle cramps felodipine Allergy Unknown Severe Verified 02/07/24 09:25 joint pain, muscle cramps lisinopril Allergy Unknown Severe Verified 02/07/24 09:25 joint pain, muscle cramps niacin Allergy Unknown Severe Verified 02/07/24 09:25 joint pain, muscle cramps simvastatin Allergy Unknown Severe Verified 02/07/24 09:25 joint pain, muscle cramps zolpidem AdvReac Unknown Hallucinati Verified 02/07/24 09:25 ons Home Medications Medication Instructions Recorded Confirmed Type aspirin 81 mg tablet 81 mg PO QAM 01/06/24 02/07/24 History cholecalciferol (vitamin D3) 125 125 mcg PO BID 01/06/24 02/07/24 History mcg (5,000 unit) tablet (Vitamin D3) diphenhydramine 25 2 tab PO HS 01/06/24 02/07/24 History mg-acetaminophen 500 mg tablet (Tylenol PM Extra Strength) duloxetine 20 mg capsule,delayed 20 mg PO QAM 01/06/24 02/07/24 History release fluticasone propionate 50 2 spray intranasal DAILY allergies 01/06/24 02/07/24 History mcg/actuation nasal spray,suspension losartan 50 mg-hydrochlorothiazide 1 tab PO QAM 01/06/24 02/07/24 History 12.5 mg tablet metformin 1,000 mg tablet 1,000 mg PO BID 01/06/24 02/07/24 History sitagliptin 100 mg tablet 100 mg PO QAM 01/06/24 02/07/24 History vitamin B12 1,000 mcg-folic acid 1 tab sublingual DAILY 01/06/24 02/07/24 History 400 mcg sublingual tablet Patient History Medical History CAD (coronary artery disease) Stent x1 (2005) Monitored by PCP Seasonal allergies Hx of renal calculi Passed on own Hx of colonic polyp Sleep apnea CPAP (compliant) HLD (hyperlipidemia) Diabetes mellitus History of basal cell carcinoma Hypertension Cervical spondylosis with myelopathy Surgical History History of esophagogastroduodenoscopy (EGD) Hx of colonoscopy with polypectomy Hx of hemorrhoidectomy (1973) History of basal cell carcinoma (BCC) excision Multiple History of open reduction and internal fixation (ORIF) procedure Feft elbow (fx from fall) Hx of heart artery stent (2003) Stent x1 Hx of cardiac catheterization 2005 > stent x1 Hx of fusion of cervical spine 15+ years ago History of left knee replacement Hx of varicose vein stripping (06/2023) 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) Family History (Updated 02/07/24 @ 17:03 by Mary Lou Celeste PA-C) Other Diabetes Social History Smoking Status: Never smoker Tobacco Type: Cigarettes Smoking End Date: Quit 40 years ago; Second Hand Exposure: No; Do You Dip or Chew Tobacco: No; Tobacco Cessation Education Requested by Patient: No Hx Alcohol Use: Yes Alcohol type: beer Hx Substance Use: No Preferred Language: Yoruba Communication Ability: Effective Educational Administrator Required: No Beliefs That Will Affect Care: None Current Living Situation: Spouse Other Information That Helps Us Care for You: No Feels Safe at Home: Yes Safety Concerns: Feels Safe At This Time Assistive Devices: CPAP, Denture - Upper and Hearing Aid - Bilateral Assistive Devices Comment: partial upper Review of Systems Review of Systems: At least ten systems reviewed and negative except as noted in the HPI. Physical Exam Physical Exam: General Appearance: WD/WN, vitals as above, NAD, sitting up in bed eating dinner, pleasant, conversing easily Head: normocephalic, atraumatic Eyes: normal inspection ENT: external ear and nose normal, oropharynx normal Neck: normal visual inspection Respiratory: normal respiratory effort, lungs clear to auscultation, no wheeze, rales, rhonchi Cardiovascular: regular rate, rhythm, normal peripheral pulses Abdomen/GI: normal bowel sounds, soft, nontender, no hepatosplenomegaly : Steward catheter Extremities/Musculoskeletal: + Spinal dressing c/d/i, EMILIANO drain visualized. No cyanosis or clubbing, extremities motor strength 5/5 Neurologic: PERRL, CN's II-XI intact bilaterally and moves all extremities Psychiatric: A+Ox3, euthymic affect Skin: no rashes, normal color, warm/dry Results & Data Vital Signs (Past 12 Hours) Vital Signs Temp Pulse Pulse Resp BP Pulse Ox O2 Del Method 02/07/24 16:29 36.6 C 72 17 121/70 96 Room Air 02/07/24 15:57 36.8 C 71 17 129/74 98 Room Air 02/07/24 15:30 36.3 C L 72 17 135/76 94 Room Air 02/07/24 15:20 69 11 L 121/66 92 Room Air 02/07/24 15:10 68 12 110/60 92 Room Air 02/07/24 15:00 69 13 124/64 98 Room Air 02/07/24 14:50 36.8 C 69 8 L 122/65 98 Room Air 12/03/24 14:40 72 15 126/63 94 Room Air 02/07/24 14:30 68 21 141/75 H 95 Room Air 02/07/24 14:20 68 12 135/76 96 Room Air 02/07/24 14:10 36.7 C 72 16 149/69 H 100 Room Air 02/07/24 09:23 36.9 C 65 20 190/88 H 98 Room Air Diagnostic Findings Lumbar Spine X-Ray 02/07/24 10:45 FL lumbar spine 2-3V CLINICAL HISTORY: L2-S1 DECOMPRESSION AND FUSION COMPARISON STUDY: None. FLUOROSCOPY TIME: 36 seconds. Ka,r: 33.90 mGy FLUOROSCOPIC IMAGES: 4 FINDINGS: Fluoroscopy was provided during L2-S1 decompression and bilateral pedicle screw fusion. There are interbody spacers at the L3-L4, L4-L5 and L5-S1 levels. No unexpected radiopaque foreign bodies are present. IMPRESSION: Fluoroscopy provided during L2-S1 decompression and fusion, as described above. ACT 112: Negative or not required by law. Electronically signed by: Melecio Liz M.D. 02/07/2024 2:05 PM
[2024-02-07] MEDS: LANTUS PER UNIT CHARGE SC SCH (17:19)
[2024-02-07] MEDS: INSULIN ASPART PER UNIT CHARGE SC SCH (17:19)
[2024-02-07] MEDS: oxyCODONE HCL IR 5 MG TAB (IMMEDIATE RELEASE) PO PRN (21:31)
[2024-02-07] MEDS: DOCUSATE SODIUM/SENNA 50/8.6MG TAB PO SCH (21:38)
[2024-02-07] MEDS: CHOLECALCIFEROL 125 MCG (5,000 UNITS) TAB PO SCH (21:39)
[2024-02-08] MEDS: POLYETHYLENE (MIRALAX) 17 GM PACK PO SCH (05:13)
[2024-02-08 08:05] LABS: Basophils # (auto) 0.02 K/uL (0.00-0.20); Basophils % (auto) 0.2 %; Eosinophils # (auto) 0.02 K/uL (0.00-0.50); Eosinophils % (auto) 0.2 %; Hematocrit (blood only) 32.1 % (42.0-52.0); Hemoglobin 10.4 g/dl (14.0-18.0); Immature Granulocytes # (auto) 0.05 K/uL (0.01-0.20); Immature Granulocytes % (auto) 0.5 %; Lymphocytes # (auto) 1.39 K/uL (1.20-3.40); Lymphocytes % (auto) 14.2 %; Mean Corpuscular Hemoglobin 30.2 pg (25.0-34.0); Mean Corpuscular Hgb Conc 32.4 g/dL (32.0-36.0); Mean Corpuscular Volume 93.3 fL (80.0-100.0); Mean Platelet Volume 10.3 fL (9.4-12.4); Monocytes # (auto) 1.04 K/uL (0.11-0.59); Monocytes % (auto) 10.6 %; Neutrophils # (auto) 7.25 K/uL (1.40-6.50); Neutrophils % (auto) 74.3 %; Platelet Count 161 K/uL (130-400); RDW Coefficient of Variation 13.2 % (11.5-14.5); RDW Standard Deviation 44.8 fL (36.4-46.3); Red Blood Count 3.44 M/uL (4.70-6.10); White Blood Count 9.77 K/ul (4.8-10.8)
--- NOTE | 2024-02-08 08:28 | Orthopedic Progress Note ---
Date of Service February 08, 2024 Assessment & Plan (1) Neurogenic claudication due to lumbar spinal stenosis: Plan: At this time continue physical therapy monitor his EMILIANO output anticipate discharge home the next few days. Admission and Anticipated Discharge Date Admission Date: February 07, 2024 Subjective Patient's back pain is controlled leg symptoms improved Physical Exam Physical Exam: Patient is in the chair at the bedside. He is comfortable. Is good strength testing. Results & Data Vital Signs (Past 12 Hours) Vital Signs Temp Pulse Pulse Resp BP Pulse Ox O2 Del Method 02/08/24 07:47 36.3 C L 72 16 136/72 Room Air 02/08/24 04:04 36.5 C 68 18 145/67 H 97 Room Air 02/07/24 23:07 36.4 C L 77 18 127/69 96 Room Air 02/07/24 22:12 CPAP Queries Orthopedic Spine Obesity: Yes
[2024-02-08 08:30] LABS: BUN Creatinine Ratio 14.6 (10-20); Calcium 8.1 mg/dl (8.6-10.3); Creatinine Clr Calc Pharmacy 77.7 ml/min
[2024-02-08] MEDS: dexAMETHasone 6 MG in SYRINGE 0 ML IV SCH (08:39)
[2024-02-08] MEDS: DULoxetine HCL 20 MG CAP PO SCH (08:44)
[2024-02-08] MEDS: ASPIRIN 81 MG ECTAB PO SCH (08:44)
[2024-02-08] MEDS: CYANOCOBALAMIN (B-12) 500 MCG TABLET PO SCH (08:45)
[2024-02-08] MEDS: FOLIC ACID 400 MCG TAB PO SCH (08:46)
[2024-02-08] MEDS: FLUTICASONE PROPIONATE NA SPR 16 GM BTL NAE SCH (08:47)
[2024-02-08] MEDS ORDERED: NON-FORMULARY MEDICATION (Vitamin B12-Folic Acid 1,000-400 mcg Tablet, Sublingual) SL SCH (09:00)
[2024-02-08] MEDS ORDERED: LOSARTAN/HCTZ 50/12.5MG TAB PO SCH (09:00)
[2024-02-08] MEDS ORDERED: SITAGLIPTIN 100 MG PO SCH (09:00)
--- NOTE | 2024-02-08 14:03 | Pharmacy Report ---
Pharmacy Glycemic Short Note 2 - Date of Service February 08, 2024 - Glycemic Short BSG Results (Last 24 hours): 02/07/24 02/07/24 02/07/24 14:14 16:33 20:42 Glucose POC Glucose 154 H 181 H 269 H 02/08/24 02/08/24 02/08/24 07:40 08:01 11:37 Glucose 161 H POC Glucose 169 H 126 H OUTPATIENT ANTIDIABETIC REGIMEN: * metformin 1000mg po bid * Januvia 100mg po q AM HbA1c 6.1% on 10/31/23 (next scheduled for AM labs on 02/08) ASSESSMENT: * 78 year old male admitted on 02/06 for spinal decompression and fusion (POD#1). Pharmacy was consulted postop for glycemic management. * BSG preop was 129mg/dL. He had 4mg iv dexamethasone and his post op BSG juan carlos to 181mg/dL. Lantus 10 units x 1 was given last evening and a weight based bolus insulin regimen with a stress of 2 was started. * Fasting BSG was 169mg/dl this morning. Dexamethasone 6mg iv daily x 3 days was ordered postop. Lantus 10 units was given this morning and will be continued daily. Bolus insulin parameters will be continued as ordered last evening. PLAN FOR INPATIENT GLYCEMIC CONTROL: * Hold outpatient diabetes medications * Basal insulin * Lantus 10 units SQ daily * Bolus insulin * NovoLog per scale ACHS or Q6hrs while NPO * Goal Range: Low 110 mg/dL - High 140 mg/dL * Correction Factor: 25 mg/dL/unit * Nutritional / Prandial insulin per carb ratio of 1 unit per 8 grams CHO consumed
--- NOTE | 2024-02-08 16:37 | Hospitalist Progress Note ---
Date of Service February 08, 2024 Assessment & Plan (1) S/P spinal surgery: (2) Neurogenic claudication due to lumbar spinal stenosis: (3) CAD (coronary artery disease): (4) Diabetes mellitus: (5) Sleep apnea: (6) Hypertension: (7) HLD (hyperlipidemia): Plan Continue postoperative care as directed by attending Monitor hemoglobin as needed Continue management of diabetes with insulin Continue other outpatient medications as ordered Therapies Pain control as directed by attending Admission and Anticipated Discharge Date Admission Date: February 07, 2024 Subjective Patient states he was able to get some rest. Denies any lightheadedness or dizziness. Has been up and walking to the bathroom. No chest pain or shortness of breath. Physical Exam Physical Exam: Constitutional: Alert, nontoxic HEENT: Mucous membranes moist. Lungs: Clear to auscultation, decreased, no wheezes rales or rhonchi CV: S1-S2, regular Abdomen: Soft, nontender, nondistended Extremities: No significant edema Musculoskeletal: EMILIANO drain in lumbar incision with serosanguineous fluid Neuro: No focal deficits Psych: Cooperative, normal mood Results & Data Results & Data Vital Signs (Past 12 Hours) Vital Signs Temp Pulse Pulse Resp BP Pulse Ox O2 Del Method 02/08/24 14:55 36.8 C 76 16 130/68 94 Room Air 02/08/24 13:23 37.0 C 72 14 136/68 95 Room Air 02/08/24 07:47 36.3 C L 72 16 136/72 95 Room Air Diagnostic Findings Reviewed imaging, laboratory and diagnostic studies. Pertinent findings as below. Hemoglobin 10.4, outpatient hemoglobin was 13+ Electrolytes stable Glucoses fairly well-controlled
[2024-02-09 06:56] LABS: Hematocrit (blood only) 26.9 % (42.0-52.0); Hemoglobin 9.1 g/dl (14.0-18.0)
[2024-02-09 07:09] LABS: Estimated Average Glucose 128 mg/dl; Hemoglobin A1C 6.1 % (4.5-5.6)
[2024-02-09] MEDS: LANTUS PER UNIT CHARGE SC SCH (08:36)
--- NOTE | 2024-02-09 11:02 | Orthopedic Progress Note ---
Date of Service February 09, 2024 Assessment & Plan (1) Neurogenic claudication due to lumbar spinal stenosis: Plan: Ricardo is postoperative day 2 status post multilevel lumbar decompression and fusion. Will continue with physical therapy and ambulation today. Continue with pain control. DVT prophylaxis is in the form teds and SCDs. Continue with aggressive bowel regimen. Anticipate discharge home tomorrow Admission and Anticipated Discharge Date Admission Date: February 07, 2024 Mayito Tinsley is postoperative day 2 status post multilevel lumbar decompression and fusion. He is doing well. Pain is controlled. He had a bowel movement. H&H is morning are 9.1 and 26.9 respectively. EMILIANO drain output last shift was 55 cc. He is making great progress daily and physical therapy. Review of Systems Review of Systems: All systems reviewed & are unremarkable except as noted in HPI & below Physical Exam Physical Exam: He is laying in bed in no acute distress Alert and oriented x 3 lumbar dressing is clean dry intact with functioning EMILIANO drain strength is intact bilateral lower extremities calf soft nontender bilaterally Results & Data Vital Signs (Past 12 Hours) Vital Signs Temp Pulse Resp BP Pulse Ox O2 Del Method 02/09/24 10:56 36.9 C 70 17 132/72 94 Room Air 02/09/24 07:45 37.0 C 71 18 127/76 96 Room Air 02/09/24 03:00 36.6 C 69 18 148/76 H 97 Room Air, CPAP Queries Orthopedic Spine Obesity: Yes
--- NOTE | 2024-02-09 15:29 | Pharmacy Report ---
Pharmacy Glycemic Short Note 2 - Date of Service February 09, 2024 - Glycemic Short BSG Results (Last 24 hours): 02/08/24 02/08/24 02/09/24 16:44 20:44 07:35 POC Glucose 206 H 184 H 162 H 02/09/24 11:39 POC Glucose 215 H OUTPATIENT ANTIDIABETIC REGIMEN: * metformin 1000mg po bid * Januvia 100mg po q AM HbA1c 6.1% on 10/31/23 (next scheduled for AM labs on 02/08) ASSESSMENT: 02/08 * Patient received 31 units of insulin yesterday (10 units basal, 21 units bolus) * Fasting BSG above goal. Will increase Lantus slightly. * Variable post prandial BSG control. However, reasonable while on high dose IV steroids. Will tighten CF and CR. Last dose of dexamethasone is scheduled for 02/09. 02/07 * 78 year old male admitted on 02/06 for spinal decompression and fusion (POD#1). Pharmacy was consulted postop for glycemic management. * BSG preop was 129mg/dL. He had 4mg iv dexamethasone and his post op BSG juan carlos to 181mg/dL. Lantus 10 units x 1 was given last evening and a weight based bolus insulin regimen with a stress of 2 was started. * Fasting BSG was 169mg/dl this morning. Dexamethasone 6mg iv daily x 3 days was ordered postop. Lantus 10 units was given this morning and will be continued daily. Bolus insulin parameters will be continued as ordered last evening. PLAN FOR INPATIENT GLYCEMIC CONTROL: * Hold outpatient diabetes medications * Basal insulin * Lantus 13 units SQ daily (only while on dexamethasone) * Bolus insulin * NovoLog per scale ACHS or Q6hrs while NPO * Goal Range: Low 110 mg/dL - High 140 mg/dL * Correction Factor: 20 mg/dL/unit * Nutritional / Prandial insulin per carb ratio of 1 unit per 6 grams CHO consumed
--- NOTE | 2024-02-09 15:56 | Hospitalist Progress Note ---
Date of Service February 09, 2024 Assessment & Plan (1) S/P spinal surgery: (2) Neurogenic claudication due to lumbar spinal stenosis: (3) CAD (coronary artery disease): (4) Diabetes mellitus: (5) Sleep apnea: (6) Hypertension: (7) HLD (hyperlipidemia): Plan This is a 78yo F with a PMH of Type 2 diabetes, hypertension, NATALIA, CAD status post stent and other medical problems listed below who is POD#0 s/p lumbar decompression bilateral medial facetectomies and foraminotomies L2-L3, L3-L4, L4-L5 and L5-S1 and posterior spinal fusion L2-S1 by Dr. Galloway. S/p spinal surgery Acute blood loss anemia s/p lumbar decompression bilateral medial facetectomies and foraminotomies L2- L3, L3-L4, L4-L5 and L5-S1 and posterior spinal fusion L2-S1 by Dr. Galloway on 02/06 Per ortho for pain control, wound care, anticoagulation and activities EBL 1,050 ml. Hemoglobin of 9.1; can be started on iron supplement as outpatient. 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 NATALIA CPAP HS, brought form home Please note the above document was generated using voice recognition software. It may contain grammatical, syntax or spelling errors. Any formal questions or concerns about the content, text or information contained within the body of this dictation should be directly addressed to the provider for clarification Admission and Anticipated Discharge Date Admission Date: February 07, 2024 Subjective Patient seen and examined at bedside. He is comfortably lying in the bed; not in distress He reports that he was able to get out of bed and walk on the hallways yesterday No significant events overnight Review of Systems Review of Systems: All systems reviewed & are unremarkable except as noted in Subjective Physical Exam Physical Exam: Constitutional: Alert, nontoxic HEENT: Mucous membranes moist. Lungs: Clear to auscultation, decreased, no wheezes rales or rhonchi CV: S1-S2, regular Abdomen: Soft, nontender, nondistended Extremities: No significant edema Musculoskeletal: EMILIANO drain in lumbar incision with serosanguineous fluid Neuro: No focal deficits Psych: Cooperative, normal mood Results & Data Results & Data Vital Signs (Past 12 Hours) Vital Signs Temp Pulse Resp BP Pulse Ox O2 Del Method 02/09/24 15:06 36.8 C 75 16 134/74 96 Room Air 02/09/24 10:56 36.9 C 70 17 132/72 94 Room Air 02/09/24 07:45 37.0 C 71 18 127/76 96 Room Air
[2024-02-09 19:44] VITALS: TEMP 97.7
[2024-02-10 07:16] VITALS: PULSE 64; RESP 18; O2SAT 97
[2024-02-10] MEDS: LANTUS PER UNIT CHARGE SC SCH (09:22)
--- NOTE | 2024-02-10 09:36 | Hospitalist Progress Note ---
Date of Service February 10, 2024 Assessment & Plan (1) S/P spinal surgery: (2) Neurogenic claudication due to lumbar spinal stenosis: (3) CAD (coronary artery disease): (4) Diabetes mellitus: (5) Sleep apnea: (6) Hypertension: (7) HLD (hyperlipidemia): Plan This is a 78yo F with a PMH of Type 2 diabetes, hypertension, NATALIA, CAD status post stent and other medical problems listed below who is POD#0 s/p lumbar decompression bilateral medial facetectomies and foraminotomies L2-L3, L3-L4, L4-L5 and L5-S1 and posterior spinal fusion L2-S1 by Dr. Galloway. S/p spinal surgery Acute blood loss anemia s/p lumbar decompression bilateral medial facetectomies and foraminotomies L2- L3, L3-L4, L4-L5 and L5-S1 and posterior spinal fusion L2-S1 by Dr. Galloway on 02/06 Per ortho for pain control, wound care, anticoagulation and activities EBL 1,050 ml. Hemoglobin of 9.1; can be started on iron supplement as outpatient. DM II Hold home agents SSI while in-patient Glycemic consult placed per primary service BSG AC HS CAD S/p stent in 2005 Continue aspirin, statin intolerant HTN lisinopril-hctz resumed NATALIA CPAP HS, brought form home Please note the above document was generated using voice recognition software. It may contain grammatical, syntax or spelling errors. Any formal questions or concerns about the content, text or information contained within the body of this dictation should be directly addressed to the provider for clarification Admission and Anticipated Discharge Date Admission Date: February 07, 2024 Subjective Patient seen and examined at bedside. Comfortable; not in distress. Denies fever, chills, chest pain, shortness of breath, abdominal pain or urinary symptoms. No significant overnight events Review of Systems Review of Systems: All systems reviewed & are unremarkable except as noted in Subjective Physical Exam Physical Exam: Constitutional: Alert, nontoxic HEENT: Mucous membranes moist. Lungs: Clear to auscultation, decreased, no wheezes rales or rhonchi CV: S1-S2, regular Abdomen: Soft, nontender, nondistended Extremities: No significant edema Musculoskeletal: EMILIANO drain in lumbar incision with serosanguineous fluid Neuro: No focal deficits Psych: Cooperative, normal mood Results & Data Results & Data Vital Signs (Past 12 Hours) Vital Signs Temp Pulse Resp BP Pulse Ox O2 Del Method 02/10/24 07:16 36.5 C 64 18 181/76 H 97 Room Air
[2024-02-10 10:29] VITALS: BP 175/79
--- NOTE | 2024-02-10 10:33 | Discharge Summary ---
Date of Service February 10, 2024 Admission HPI Per Admitting Provider This is a 78-year-old male who presents with chronic persistent back and bilateral knee pain after failing course of nonoperative care is here for surgical invention. Principal Diagnosis Lumbar spinal stenosis with neurogenic claudication Discharge Data Allergies Allergy/AdvReac Type Severity Reaction Status Date / Time atenolol Allergy Unknown Severe Verified 02/07/24 09:25 joint pain, muscle cramps atorvastatin Allergy Unknown Severe Verified 02/07/24 09:25 joint pain, muscle cramps ezetimibe Allergy Unknown Severe Verified 02/07/24 09:25 joint pain, muscle cramps felodipine Allergy Unknown Severe Verified 02/07/24 09:25 joint pain, muscle cramps lisinopril Allergy Unknown Severe Verified 02/07/24 09:25 joint pain, muscle cramps niacin Allergy Unknown Severe Verified 02/07/24 09:25 joint pain, muscle cramps simvastatin Allergy Unknown Severe Verified 02/07/24 09:25 joint pain, muscle cramps zolpidem AdvReac Unknown Hallucinati Verified 02/07/24 09:25 ons Consultations 02/07/24 15:42 Consult Hospitalist Routine Procedures Performed Operation Date: 02/07/24 10:45 Actual Procedures p L2-S1 Decompression and Fusion, Spinal Cord Monitoring(Not Applicable) - Mike Galloway DO Ordered Studies 02/07/24 10:45 [place] lumbar spine 2-3V Routine Hospital Course (1) Neurogenic claudication due to lumbar spinal stenosis: Patient underwent multilevel lumbar decompression fusion trial as well as taken orthopedic for postoperative. Postoperatively progressed appropriately. Leg symptoms improved. Strength intact. EMILIANO drain decreasing well. Subsidy discharged home. Discharge order instructions found in chart for further review. Total Time Total Time Spent Total Time Spent (In Minutes): 20 minutes Discharge Plan Discharge Items Patient Disposition: Home - Self-Care Reason For Visit: Spinal Stenosis Lumbar Region Discharge Diagnosis: Lumbar spondylosis with radiculopathy Activity: As commented below Non-emergency contact: Primary Care Provider Call non-emergency contact if: you have any medication questions Follow-up/Referrals: Lemuel Gordillo DO [Primary Care Provider] - Diet: Regular Addtl Attending Provider Instructions: ACTIVITY RECOMMENDATIONS: SELF CARE INSTRUCTIONS AFTER THORACIC/LUMBAR FUSIONS 1. You may walk to your tolerance. It is good exercise for your legs and back. Expect some back and intermittent leg aches and pains. 2. You may perform "counter-top" level activities (make a sandwich, becka with a project, etc.). 3. No bending or lifting of more than 10 pounds or back twisting of any nature (roll like a log when turning in bed). 4. You may ride in a car for 20-30 minutes at a time. No driving until after your first visit with your doctor. 5. Frequent changes of position and restricting sitting to 30 minutes at a time will help limit the amount of back spasms and stiffness you may experience. 6. You may discontinue the use of ambulatory aids (cane, crutches, etc.) once your strength and confidence allow. 7. You may financial operations analyst the shower and let water strike your incision when you arrive home at least once daily. Do not take a tub bath, sit in a hot tub or go into a swimming pool until after your first recheck in the office. 8. You may resume previous diet. SPECIAL CARE INSTRUCTIONS: VERY IMPORTANT TO READ AND REVIEW A. Your surgical incision has been closed with a cosmetic suture under the skin that will dissolve in about 6 weeks. In 14 days, you can use a pair of clean scissors and cut the suture that is left outside of the skin at the ends of your incision. 1. The small skin tapes can be removed 7 days after surgery if they have not fallen off by that point. 2. You may keep the wound open to air as much as possible to promote healing after post-op day number 5 unless told otherwise by your doctor. 3. If you think the wound looks like it is becoming infected (redness or worsening drainage) and/or you are experiencing fever, chill or worsening back pain and muscle spasms, contact the office so that we may evaluate you as soon as possible. B. Complications are uncommon, but please contact us if you have any signs or symptoms of: 1. wound infection (fever higher than 102.5 degrees F, redness, separation of wound, drainage, or increasing pain from the incision) 2. blood clots in legs (pain, swelling, redness and warmth in legs) 3. urinary tract infection (fever higher than 102.5 degrees F, burning upon urination or increased frequency of urination) 4. nerve problems (inability to walk on your toes or heels, numbness, loss of bowel or bladder control) 5. any other symptoms that concern you C. Please call the office at if you have any concerns or questions about your operation or recovery. D. No smoking! Smoking drastically decreases the chance of a solid fusion. E. Do not take any anti-inflammatory medications (Indocin, Advil, Motrin, Aspirin, Naprosyn, etc.) as these may inhibit the chance of a solid fusion. Tylenol is okay to take for pain. MANAGING PAIN AFTER SPINAL SURGERY 1. Narcotic medication is intended for short-term use and will be provided for surgical pain. Surgical pain usually lasts for a period of 4-6 weeks. Narcotic medication includes Percocet, Vicodin, Darvocet, Tylenol #3 or Lortab. 2. Longer-term pain is more appropriately treated with non-narcotic medication such as Tylenol ES. 3. Muscle spasm is not appropriately treated with narcotics. Muscle relaxers such as Soma, Flexeril or Skelaxin can be used along with Tylenol ES. 4. Remember that we all live with some "aches and pains". This is not unusual or uncommon after an injury or as we get older. a. Back pain is expected and may include muscle spasms for 4 to 6 weeks after surgery. The pain should gradually improve. If the pain worsens for no apparent reason, please contact the office. b. Intermittent leg pain may also be experienced and should not be concerned about unless it worsens for no apparent reason. If so, please contact the office. 5. We will provide appropriate medication within the normal guidelines of their prescribed use. We will also be very cautious and aware of potential abuse and extended duration of patients' medication needs. a. Pain medications are for your comfort and to assist with sleep and rest so that the tissue can heal. They are not provided in order to return to normal activity and should not be used through the day. To do so or worsening pain at night can result from ongoing tissue damage and development of tolerance to the prescribed medicine. 6. Please allow 2-3 days to process refills. Prescriptions will not be mailed but must be picked up at the office. FOLLOW UP VISIT: Keep your scheduled follow-up appointment. Any questions, please call the office at . Pending Studies at Discharge: No Stand-Alone Forms: My [facility], Smoking Cessation Medications and DC Order Prescriptions: New tramadol 50 mg tablet 50 mg PO Q6H PRN (Reason: pain, moderate) Qty: 30 0RF oxycodone 5 mg tablet 5 mg PO Q6H PRN (Reason: pain) Qty: 30 0RF Continued metformin 1,000 mg Tablet 1,000 mg PO BID aspirin 81 mg Tablet 81 mg PO QAM diphenhydramine-acetaminophen [Tylenol PM Extra Strength] 25-500 mg Tablet 2 tab PO HS losartan-hydrochlorothiazide 50-12.5 mg Tablet 1 tab PO QAM fluticasone propionate 50 mcg/actuation [place],Suspension 2 spray INTRANASAL DAILY Rx Instructions: administer into each nostril duloxetine 20 mg Capsule,Delayed Release(Dr/Ec) 20 mg PO QAM cholecalciferol (vitamin D3) [Vitamin D3] 125 mcg (5,000 unit) Tablet 125 mcg PO BID Rx Instructions: will start 01/22 vitamin [id number] acid 1,000-400 mcg Tablet, Sublingual 1 tab SUBLINGUAL DAILY sitagliptin 100 mg Tablet 100 mg PO QAM Discharge Orders: Discharge Order (Routine); Ordered 02/10/24 Ordered By: Mike Butt/Other Patient Handouts: Managing Type 2 Diabetes Admission Data Admit Date/Time: 02/07/24 13:59 Attending Provider: Mike Galloway Admit Provider: Mike Galloway Primary Care Provider: Lemuel Gordillo Other Providers: Amberly Hunt
== END 2024-02-10 12:27 | disposition home or self-care (01) | DRG 427 ==
LOC: ASU 08:51 → 3W 13:59